=== PATIENT | female | born 1965 | race Caucasian/White ===

== ENCOUNTER 2017-12-18 18:04 | Emergency (ER) | payer MEDICAID ==
[~2017-12-18] VITALS: Ht 152.4 cm; Wt 45.5 kg
[2017-12-18 19:22] VITALS: BP 123/76
== END 2017-12-18 19:22 | disposition home or self-care (01) ==
LOC: EMS 18:06
DX: I87.8 Other specified disorders of veins (principal); R22.1 Localized swelling, mass and lump, neck